=== PATIENT | female | born 1960 | race African-American/Black ===

== ENCOUNTER 2021-02-07 06:23 | Emergency (ER) | payer BC ==
[~2021-02-07] VITALS: Ht 177.8 cm; Wt 82.0 kg
[2021-02-07 06:48] VITALS: BP 107/84
[2021-02-07] MEDS ORDERED: HYDR-4001 MT (15:09)
== END 2021-02-07 08:07 | disposition home or self-care (01) ==
LOC: ER 06:23
DX: S91.152A Open bite of left great toe without damage to nail, initial encounter (principal); I10 Essential (primary) hypertension; E78.00 Pure hypercholesterolemia, unspecified; I25.2 Old myocardial infarction; Z98.61 Coronary angioplasty status; W53.01XA Bitten by mouse, initial encounter; Y93.89 Activity, other specified; Y92.018 Other place in single-family (private) house as the place of occurrence of the external cause
CPT/HCPCS: 99281

== ENCOUNTER 2021-02-07 12:43 | Emergency (ER) | payer BC ==
[~2021-02-07] VITALS: Ht 177.8 cm; Wt 81.0 kg
[2021-02-07 12:57] VITALS: BP 120/91
[2021-02-07] MEDS ORDERED: ACETAMINOPHEN 325MG TABLET PO ONE (13:45)
[2021-02-07] MEDS ORDERED: HYDR-4001 MT (15:09)
== END 2021-02-07 16:00 | disposition home or self-care (01) ==
LOC: ER 12:43
DX: M25.561 Pain in right knee (principal); E11.9 Type 2 diabetes mellitus without complications; E78.00 Pure hypercholesterolemia, unspecified; I10 Essential (primary) hypertension; I25.2 Old myocardial infarction; Z98.61 Coronary angioplasty status; W01.0XXA Fall on same level from slipping, tripping and stumbling without subsequent striking against object, initial encounter; Y93.89 Activity, other specified; Y92.018 Other place in single-family (private) house as the place of occurrence of the external cause
CPT/HCPCS: 29505; 73560; 99283

== ENCOUNTER 2023-01-09 13:03 | Emergency (ER) | payer BC ==
[~2023-01-09] VITALS: Ht 175.3 cm; Wt 70.0 kg
[~2023-01-09 13:03] MED LIST: HYDR-4001 MT
[2023-01-09 13:06] VITALS: O2SAT 100
[2023-01-09 16:21] VITALS: BP 126/84; PULSE 82; RESP 20; TEMP 98.2
== END 2023-01-09 16:23 | disposition home or self-care (01) ==
LOC: ER 13:03
DX: S60.041A Contusion of right ring finger without damage to nail, initial encounter (principal); E78.00 Pure hypercholesterolemia, unspecified; I10 Essential (primary) hypertension; I25.2 Old myocardial infarction; Z98.890 Other specified postprocedural states; W25.XXXA Contact with sharp glass, initial encounter; Y93.89 Activity, other specified; Y92.89 Other specified places as the place of occurrence of the external cause; Y99.8 Other external cause status
CPT/HCPCS: 29130; 73130; 99283